=== PATIENT | male | born 1975 | race Caucasian/White ===

== ENCOUNTER 2016-09-14 09:34 | Emergency (ER) | payer OTHER ==
[~2016-09-14] VITALS: Ht 198.1 cm; Wt 126.1 kg
[2016-09-14 09:39] VITALS: BP 141/91; PULSE 110; RESP 16; TEMP 99
--- NOTE | 2016-09-14 09:48 | PD ---
HPI Chief Complaint: Musculoskeletal Complaint Time Seen by Provider: 09:43 Travel History International Travel<30 days: No Contact w/Intl Traveler<30days: No Traveled to known affect area: No History of Present Illness HPI 41-year-old male complains of right ankle pain. Patient states that he twisted his right ankle inward last night. Patient denies any other injury. Patient states that has sharp pain localized to the lateral aspect the right ankle. Patient denies any pain radiation. Patient states that the pain is worse with weightbearing. On a scale of 1-10 the pain is a 7. PFSH Social History Tobacco Use: No Allergies-Medications (Allergen,Severity, Reaction): Coded Allergies: No Known Allergies (Unverified , 09/14/16) Reported Meds & Prescriptions Reported Meds & Active Scripts Active Ultram (Tramadol HCl) 50 Mg Tab 50 Mg PO Q6H PRN Ibuprofen 600 Mg Tab 600 Mg PO TID Review of Systems General / Constitutional: No: Fever Eyes: No: Visual changes HENT: No: Headaches Cardiovascular: No: Chest Pain or Discomfort Respiratory: No: Shortness of Breath Gastrointestinal: No: Abdominal Pain Genitourinary: No: Dysuria Musculoskeletal: Positive: Pain Skin: No Rash Neurologic: No: Weakness Psychiatric: No: Depression Endocrine: No: Polydipsia Hematologic/Lymphatic: No: Easy Bruising Physical Exam Narrative GENERAL: Well-nourished, well-developed patient. SKIN: Focused skin assessment warm/dry. HEAD: Normocephalic. EYES: No scleral icterus. No injection or drainage. NECK: Supple, trachea midline. No JVD or lymphadenopathy. CARDIOVASCULAR: Regular rate and rhythm without murmurs, gallops, or rubs. RESPIRATORY: Breath sounds equal bilaterally. No accessory muscle use. GASTROINTESTINAL: Abdomen soft, non-tender, nondistended. MUSCULOSKELETAL: No cyanosis, or edema. BACK: Nontender without obvious deformity. No CVA tenderness. Patient has soft tissue swelling tenderness lateral malleolus area of the right ankle. Full range of motion of the toes. Data Data Last Documented VS Vital Signs Date Time Temp Pulse Resp B/P Pulse Ox O2 Delivery O2 Flow Rate FiO2 09/14/16 09:39 99.0 110 16 141/91 Orders Ankle, Complete ([id number]) (09/14/16 09:46) Splint Or Brace Apply/Monitor (09/14/16 10:23) Crutches (09/14/16 10:23) Brace Ankle Stirrup (09/14/16 ) MDM Medical Decision Making Medical Screen Exam Complete: Yes Emergency Medical Condition: Yes Interpretation(s) 10:18 AM. X-ray right ankle shows soft tissue swelling. No obvious acute fracture. Differential Diagnosis Differential diagnosis including sprain, fracture, dislocation. Narrative Course 41-year-old male with right ankle injury. Stirr up ankle brace applied. Crutches given. Diagnosis Primary Impression: Right ankle sprain Qualified Code: S93.411A - Sprain of calcaneofibular ligament of right ankle, initial encounter Patient Instructions: General Instructions Additional Instructions: Wear the ankle brace as directed. Take medication as needed for pain. Follow- up with orthopedist if persistent problem. Med/Other Pt SpecificInfo: Prescription(s) given Scripts Tramadol (Ultram)50 Mg Tab50 Mg PO Q6H PRN (PAIN) #20 TAB Ref 0 Prov:Michele King MD 09/14/16 Ibuprofen 600 Mg [id number] Mg PO TID #60 TAB Ref 0 Prov:Michele King MD 09/14/16 Disposition: 01 DISCHARGE HOME Condition: Stable Michele King MD Sep 14, 2016 09:48
--- NOTE | 2016-09-14 10:15 | RADRPT ---
EXAM DATE/TIME: 09/14/2016 09:53 [facility] COMPARISON: No previous studies available for comparison. INDICATIONS : Right ankle pain and swelling, lateral malleolus, slipped off a curb last night. MEDICAL HISTORY : None. SURGICAL HISTORY : None. ENCOUNTER: Initial ACUITY: 2 days PAIN SCORE: 7/10 LOCATION: Right lateral ankle FINDINGS: Three view exam was performed of the right ankle. The bony structures are in normal alignment. No e vidence of fracture, dislocation. There is soft tissue swelling along the lateral malleolus. The ank le mortise is intact. No radiopaque foreign bodies are seen. Bony mineralization is normal. CONCLUSION: Soft tissue swelling along the lateral malleolus. No acute fracture or joint dislocation. Rodriguez Cottrell MD on September 14, 2016 at 10:11 Board Certified Radiologist. This report was verified electronically.
[2016-09-14] MEDS ORDERED: ULTR50TA5 PO (10:20)
[2016-09-14] MEDS ORDERED: IBUP-232 PO (10:20)
== END 2016-09-14 11:01 | disposition home or self-care (01) ==
LOC: PHED 09:34
DX: S93.411A Sprain of calcaneofibular ligament of right ankle, initial encounter (principal); X50.1XXA Overexertion from prolonged static or awkward postures, initial encounter
CPT/HCPCS: 73610; 99283; E0113; L1906